=== PATIENT | female | born 1985 | race American Indian/Alaskan Native ===

== ENCOUNTER 2018-11-10 19:49 | Inpatient (IN) | payer SELFPAY ==
[2018-11-10] MEDS ORDERED: NACL 0.9% 1000 ML 1,000 ML IV ONE (20:13)
[2018-11-10 21:29] LABS: Basophils % (Auto) 0.6 % (0.0-1.8); Eosinophils # (Auto) 0.2 K/mm3 (0.0-0.4); Eosinophils % (Auto) 4.6 % (0.0-4.3); Hematocrit 36.4 % (30.3-42.9); Hemoglobin 12.1 gm/dl (10.1-14.3); Lymphocytes # (Auto) 1.8 K/mm3 (1.2-5.4); Lymphocytes % (Auto) 47.6 % (13.4-35.0); Mean Corpuscular HGB Conc 33 % (30-34); Mean Corpuscular Volume 84 fl (79-97); Monocytes # (Auto) 0.4 K/mm3 (0.0-0.8); Monocytes % (Auto) 11.9 % (0.0-7.3); Platelet Count 247 K/mm3 (140-440); Red Blood Count 4.32 M/mm3 (3.65-5.03); Red Cell Distribution Width 14.2 % (13.2-15.2)
[2018-11-10 21:38] LABS: INR 0.85 (0.87-1.13)
[2018-11-10 21:39] LABS: Partial Thromboplastin Time 27.9 Sec. (24.2-36.6)
[2018-11-10] MEDS ORDERED: PROTONIX IV ONE (21:41)
[2018-11-10] MEDS ORDERED: REGLAN IV ONE (21:41)
--- NOTE | 2018-11-10 21:45 | Emergency Department Report ---
HPI - General Chief Complaint: GI Bleed Time Seen by Provider: 11/10/18 21:36 - HPI HPI: 32-year-old -British female presents to the emergency department with complaint of a 2-3 day history of some right-sided abdominal pain and cramping, nausea with a few episodes of vomiting. Patient also says that she had one or 2 episodes of bright red blood per rectum while having a bowel movement. She has a past medical history of schizophrenia, fibromyalgia, previous intestinal disease causing bowel resections, hernia repairs and an ileostomy that has been reversed. She has not taken anything for her symptoms prior to presentation. The patient has been seen here in the past, last time in 2016. She says that she just moved back here from [place] and therefore does not have a local primary care physician. ED Past Medical Hx - Past Medical History Hx Congestive Heart Failure: No Hx Diabetes: No Hx Psychiatric Treatment: Yes (SCHIZOPHRENIA) Hx Asthma: No Hx COPD: No Additional medical history: Fibromyalgia. "crohns disease" - Surgical History Hx Appendectomy: Yes Additional Surgical History: X 5. BOWEL RESECTIONS w/ HERNIA REPAIRS - Social History Smoking Status: Never Smoker Substance Use Type: None - Medications Home Medications: Home Medications Medication Instructions Recorded Confirmed Last Taken Type Quetiapine Fumarate [SEROquel] 200 mg PO BID 08/03/14 07/31/15 1 Day Ago History ~02/19/15 FLUoxetine [PROzac] 20 mg PO QDAY 12/06/14 07/31/15 1 Day Ago History ~02/19/15 Dicyclomine [Bentyl] 40 mg PO QID PRN 06/19/15 07/31/15 Unknown History Famotidine [Pepcid] 20 mg PO DAILY #30 tablet 07/31/15 Unknown Rx Ferrous Sulfate 325 mg PO DAILY 07/31/15 07/31/15 Unknown History Ondansetron (Nf) [Zofran TAB] 8 mg PO Q8HR PRN #20 tablet 07/31/15 Unknown Rx traMADol [Ultram 50 MG tab] 50 - 100 mg PO Q8HR PRN #20 tablet 07/31/15 Unknown Rx Docusate Sodium [Colace] 100 mg PO BID PRN #20 capsule 11/11/18 Unknown Rx ED Review of Systems ROS: Stated complaint: ABDOMINAL PAIN, RECTAL BLEEDING Other details as noted in HPI Comment: All other systems reviewed and negative Constitutional: denies: chills, fever Eyes: denies: eye pain, vision change ENT: denies: ear pain, throat pain Respiratory: denies: cough, shortness of breath Cardiovascular: denies: chest pain, palpitations Gastrointestinal: abdominal pain, nausea, vomiting, other (rectal bleeding) Genitourinary: denies: dysuria, discharge Musculoskeletal: denies: back pain, arthralgia Skin: denies: rash, lesions Neurological: denies: headache, weakness Physical Exam - Physical Exam Vital Signs: Vital Signs 11/10/18 20:09 Temperature 97.5 F L Pulse Rate 64 Respiratory 16 Rate Blood Pressure 106/67 O2 Sat by Pulse 100 Oximetry Physical Exam: GENERAL: The patient is well-developed well-nourished. HEENT: Normocephalic. Atraumatic. Patient has moist mucous membranes. EYES: Extraocular motions are intact. Pupils are equal and reactive to light bilaterally. NECK: Supple. Trachea is midline. CHEST/LUNGS: Clear to auscultation. There is no respiratory distress noted. HEART/CARDIOVASCULAR: Regular. There is no tachycardia. There is no obvious murmur. ABDOMEN: Abdomen is soft. There is tenderness to palpation of the generalized abdomen. No guarding. Patient has normal bowel sounds. There is no abdominal distention. SKIN: Skin is warm and dry. NEURO: The patient is awake, alert, and oriented. The patient is cooperative. The patient has no focal neurologic deficits. The patient has normal speech. MUSCULOSKELETAL: There is no tenderness or deformity. There is no limitation range of motion. There is no evidence of acute injury. RECTAL: There is a nonthrombosed external hemorrhoid seen at the 5 o'clock position. No gross blood. Negative stool on guaiac testing. ED Course Vital Signs 11/10/18 20:09 Temperature 97.5 F L Pulse Rate 64 Respiratory 16 Rate Blood Pressure 106/67 O2 Sat by Pulse 100 Oximetry ED Medical Decision Making - Lab Data Result diagrams: 11/10/18 21:04 11/10/18 21:04 - EKG Data -: EKG Interpreted by Me EKG shows normal: sinus rhythm, axis (left axis deviation), intervals, QRS complexes (LVH), ST-T waves (repolarization, nonspecific ST-T waves) Rate: normal - EKG Data When compared to previous EKG there are: previous EKG unavailable Interpretation: other (sinus rhythm, left axis deviation, LVH, early repolarization) - Radiology Data Radiology results: report reviewed, image reviewed interpreted by me: Abdominal x-ray shows nonspecific bowel gas with increased stool volume. EXAM: CT ABDOMEN PELVIS W CON HISTORY: Abd pain TECHNIQUE: Dynamic helical CT scan through the abdomen and pelvis during and again after intravenous injection of iodinated contrast. Images are reconstructed in the sagittal and coronal planes. Oral contrast was not given. PRIORS: None. FINDINGS: The lung bases are clear. The liver, gallbladder, pancreas, spleen and adrenal glands appear normal. The kidneys appear normal. The pelvic organs appear grossly normal. There is an IUD that appears adequately positioned in the uterus. The stomach appears grossly within normal limits. There is a relatively large amount of gas and stool in the right colon and in the rectum. There are multiple mildly gas distended loops of small bowel throughout the abdomen. The appendix is not discretely visualized but there are no inflammatory changes in the right lower quadrant around the area of the cecum. The abdominal aorta has a normal diameter. The bones and subcutaneous soft tissues are unremarkable for age. IMPRESSION: Findings are most consistent with a diffuse ileus and constipation Transcribed By: MLG Dictated By: MARJAN LAM MD Electronically Authenticated By: MARJAN LAM MD Signed Date/Time: 11/11/18 0132 - Medical Decision Making Patient presents with a complaint of decreased bowel movements, abdominal pain, nausea or vomiting. She has a history of intestinal surgery, resection, previous bowel obstructions. Labs are mostly unremarkable. CT scan of the abdomen and pelvis with IV contrast shows diffuse ileus and constipation. Patient has received some pain medication, nausea medication, IV fluid resuscitation and still complains of having abdominal discomfort. Despite the fact that it is an ileus, the patient has a history of previous bowel obstruction. She does not have any current hypertension but she is borderline with a current blood pressure of 92/50. For all these reasons the patient will be admitted to the hospital for further evaluation, resuscitation and treatment and has been accepted for admission by the hospitalist, Dr. Sánchez. - Differential Diagnosis bowel obstruction, ileus, colitis, constipation Critical Care Time: No Critical care attestation.: If time is entered above; I have spent that time in minutes in the direct care of this critically ill patient, excluding procedure time. ED Disposition Clinical Impression: Ileus, Increased stool volume, Intractable abdominal pain, History of small bowel obstruction Disposition: 09 OP ADMIT IP TO THIS HOSP Is pt being admited?: No Condition: Fair Instructions: Constipation (ED), High Fiber Diet (ED), Abdominal Pain (ED), Ileus (ED) Additional Instructions: Please follow up with a primary care physician as soon as possible. I am giving you a referral for a local gastroenterology to follow up regarding your episodes of rectal bleeding, abdominal pain and issues with constipation. Increase your rehydration. Return to the emergency Department with any worsening of your symptoms with any acute distress. Prescriptions: Docusate Sodium [Colace] 100 mg PO BID PRN #20 capsule PRN Reason: Constipation Referrals: [facility] [Provider Group] - 2-3 Days REHANA SOMMER MD [Staff Physician] - 2-3 Days [facility] [Outside] - 2-3 Days Time of Disposition: 02:24
[2018-11-10 22:01] LABS: Bilirubin,Urine NEG (Negative); Blood,Urine NEG (Negative); Color,Urine Yellow (Yellow); Mucus,Urine 1+ /HPF
[2018-11-10 22:18] LABS: Albumin 4.1 g/dL (3.9-5); BUN/Creatinine Ratio 27; Blood Urea Nitrogen 16 mg/dL (7-17); Calcium 8.9 mg/dL (8.4-10.2); Hemolysis Index 100
[2018-11-10 22:22] LABS: Alanine Aminotransferase 24 units/L (7-56)
--- NOTE | 2018-11-10 22:31 | XRay Report ---
FINAL REPORT EXAM: XR ABDOMEN 2V HISTORY: abd pain TECHNIQUE: Supine abdomen PRIORS: None. FINDINGS: There is moderate gaseous distention with increased amount of stool within the colon. Air is seen in nondistended small bowel loops. Noted is IUD seen centrally within the pelvis. IMPRESSION: Nonspecific bowel gas pattern. Increased amount of stool and gas within the colon.
[2018-11-10] MEDS ORDERED: BENTYL PO ONE (23:36)
--- NOTE | 2018-11-11 01:32 | Cat Scan Report ---
FINAL REPORT EXAM: CT ABDOMEN PELVIS W CON HISTORY: Abd pain TECHNIQUE: Dynamic helical CT scan through the abdomen and pelvis during and again after intravenous injection of iodinated contrast. Images are reconstructed in the sagittal and coronal planes. Oral c ontrast was not given. PRIORS: None. FINDINGS: The lung bases are clear. The liver, gallbladder, pancreas, spleen and adrenal glands appear normal. The kidneys appear normal. The pelvic organs appear grossly normal. There is an IUD that appears adequately positioned in the ut erus. The stomach appears grossly within normal limits. There is a relatively large amount of gas and stool in the right colon and in the rectum. There are m ultiple mildly gas distended loops of small bowel throughout the abdomen. The appendix is not discre tely visualized but there are no inflammatory changes in the right lower quadrant around the area of the cecum. The abdominal aorta has a normal diameter. The bones and subcutaneous soft tissues are unremarkable for age. IMPRESSION: Findings are most consistent with a diffuse ileus and constipation
[2018-11-11] MEDS ORDERED: NACL 0.9% 1000 ML 1,000 ML IV ONE (01:40)
[2018-11-11] MEDS ORDERED: CITRATE OF MAGNESIA PO ONE (02:25)
[2018-11-11] MEDS ORDERED: ZOFRAN IV PRN (03:20)
[2018-11-11] MEDS ORDERED: DULCOLAX PO PRN (03:24)
--- NOTE | 2018-11-11 05:00 | History and Physical Report ---
CHIEF COMPLAINT: Abdominal pain. Other complaint include rectal bleed. HISTORY OF PRESENT ILLNESS: The patient is a 32-year-old female, who started having right-sided abdominal pain associated with nausea and vomiting and the patient said that she had about 1-2 episodes of bright red blood per rectum while having bowel movement; however, the patient said the last bowel movement before presentation was 3 days prior to coming to the Emergency Room. The patient denies history of hematemesis and denies history of shortness of breath or chest pain. There is also no history of fever and the patient presented for evaluation. The patient states she moved to [place] from [place] and has no local primary care physician. PAST MEDICAL HISTORY: Pertinent for schizophrenia. Also, the patient has past medical history of fibromyalgia, Crohn's disease. PAST SURGICAL HISTORY: , bowel resection with hernia repair. Also, the patient has past surgical history of ileostomy that was reversed. FAMILY HISTORY: Noncontributory. SOCIAL HISTORY: The patient does not smoke, does not drink alcohol and does not use illicit drugs. MEDICATIONS: The patient is on Seroquel 200 mg by mouth twice daily, Prozac 20 mg by mouth daily, Bentyl 40 mg by mouth q.i.d., famotidine 20 mg by mouth daily, ferrous sulfate 325 mg by mouth daily, Zofran 8 mg by mouth every 8 hours as needed for nausea and vomiting, Ultram 50 mg by mouth every 8 hours, Colace 100 mg by mouth twice daily. ALLERGIES: THE PATIENT IS ALLERGIC TO KETOROLAC TROMETHAMINE. Also, the PATIENT IS ALLERGIC TO ACETAMINOPHEN. REVIEW OF SYSTEMS: CONSTITUTIONAL: There is no fever, no chills, no diaphoresis. HEENT: There is no headache or sore throat. CARDIOVASCULAR SYSTEM: There is no chest pain or orthopnea. RESPIRATORY SYSTEM: There is no shortness of breath or cough. GASTROINTESTINAL SYSTEM: Abdominal pain is present. Nausea and vomiting present. Rectal bleeding present, constipation present. No diarrhea. NEUROLOGICAL: There is no numbness, no dizziness, no altered mental status. MUSCULOSKELETAL SYSTEM: There is no joint pain or swelling. DERMATOLOGICAL SYSTEM: There is no skin rash or itching. GENITOURINARY SYSTEM: There is no dysuria, hematuria or flank pain. Rest of system review is normal. PHYSICAL EXAMINATION: GENERAL: At the time of exam, the patient was found to be alert, oriented x 3, and not in acute distress. VITAL SIGNS: At the initial time of presentation showed temperature of 97.5 degrees Fahrenheit, pulse of 64, respirations 16, blood pressure 106/67, O2 sat of 100% on room air. HEENT: Showed pupils to be equal, round, reactive to light and accommodating. Extraocular muscles are intact. NECK: Supple with no JVD or carotid bruit. CARDIOVASCULAR: Showed normal first and second heart sounds with no gallops or murmurs. RESPIRATORY SYSTEM: Show good air entry on both sides of the lungs with no abnormal breath sounds. GASTROINTESTINAL SYSTEM: Show abdomen to be full, soft with generalized tenderness, but no guarding, no rigidity, no rebound tenderness and no organomegaly was elicited. Bowel sounds are hypoactive. NEUROLOGIC: Showed no focal neurological deficit. MUSCULOSKELETAL SYSTEM: Show no joint swelling or tenderness. DERMATOLOGICAL SYSTEM: Show no skin rash. GENITOURINARY SYSTEM: Showing no costovertebral angle tenderness. PERTINENT LABORATORY AND IMAGING STUDIES: The patient had a CT of the abdomen and pelvis done that shows diffuse ileus and constipation. Also, the patient also had abdominal x-ray done that shows nonspecific bowel gas pattern, increased amount of stool and gas within the colon. The patient's lab results shows a CBC with a low white count of 3.8, normal hemoglobin and normal hematocrit with CBC differential showing elevated lymphocyte count of 47.6%, elevated monocyte count of 11.9% and high eosinophil count of 4.6%. The patient's coagulation studies were unremarkable. Chemistry was unremarkable. The patient's urinalysis show high specific gravity of 1.031 with negative urine leukocyte esterase, negative urine nitrite, normal urine WBC and no bacteria. DIAGNOSES: 1. Ileus. 2. Rectal bleed. 3. Constipation. PLAN OF ACTION: 1. The patient will be admitted to medical surgical [facility] on remote telemetry. 2. The patient will have CBC checked in the morning. 3. The patient will be on IV Protonix 40 mg q. 12 hours. 4. The patient will be on IV normal saline running at 125 mL an hour. 5. The patient will have one dose of Bentyl 20 mg IM in the morning. 6. The patient will be on IV morphine 2 mg every 4 hours as needed for pain and IV Zofran 4 mg every 8 hours for nausea and vomiting. 7. The patient will have GI consult with [facility] with Dr. Junaid Capone listed. 8. The patient will remain n.p.o. until seen by the deli clerk. 9. The patient will be on Dulcolax 10 mg by mouth daily as needed for constipation. JOB# [id number] OCN/NTS
[2018-11-11] MEDS: NACL 0.9% 1000 ML 1,000 ML IV SCH ×2 (05:27→12:04)
[2018-11-11] MEDS ORDERED: BENTYL IM ONE (06:23)
[2018-11-11] MEDS: MORPHINE IV PRN ×3 (06:28→13:48)
[2018-11-11 07:35] LABS: Hemoglobin 11.8 gm/dl (10.1-14.3); Mean Corpuscular HGB Conc 33 % (30-34); Mean Corpuscular Volume 86 fl (79-97); Platelet Count 233 K/mm3 (140-440); Red Cell Distribution Width 14.5 % (13.2-15.2)
[2018-11-11 08:58] LABS: Anisocytosis 1+; Hypochromasia 1+; Poikilocytosis 1+; Total Cells Counted 100
[2018-11-11 08:59] LABS: Ovalocytes Few; Platelet Estimate Consistent w Auto
[2018-11-11] MEDS ORDERED: BENADRYL IV ONE (09:11)
[2018-11-11] MEDS ORDERED: PROTONIX IV SCH (10:00)
--- NOTE | 2018-11-11 13:16 | Gastroenterology Consultation ---
History of Present Illness - Reason for Consult Consult date: 11/11/18 abdominal pain, abnormal ct scan Requesting physician: ANIYAH ROCA - History of Present Illness Pt is a 32 yo female who presents with abdominal pain and nausea/vomiting. Pt with h/o multiple abdominal surgeries outside of [place] (reports having 11 surgeries for bowel obstruction with right sided colon resection and part of her small bowel removed - records not available at time of exam/history). she recently moved to [place]. she has recurrent episodes of abdominal pain and nausea/vomiting for which she presented to ED. She has chronic constipation with bm's occuring every 2-3 days. She reports having scant hematochezia several days ago with hard stools. CT scan showed signs of constipation and diffuse ileus. she reports having work-up in the past by GI (colonoscopy/egd) and denies diagnosis of IBD. Past History Past Medical History: other Past Surgical History: hernia repair, bowel surgery Social history: no significant social history Family history: no significant family history Medications and Allergies Allergies Allergy/AdvReac Type Severity Reaction Status Date / Time ketorolac tromethamine Allergy Swelling Verified 07/30/15 17:52 [From Toradol] acetaminophen [From Percocet] AdvReac Unknown Verified 07/30/15 17:52 cephalexin monohydrate AdvReac Itching Verified 07/30/15 17:52 [From Keflex] meperidine HCl [From Demerol] AdvReac Unknown Verified 07/30/15 17:52 morphine AdvReac Unknown Verified 07/30/15 17:52 NSAIDS (Non-Steroidal AdvReac Unknown Verified 07/30/15 17:52 Anti-Inflamma oxycodone HCl [From Percocet] AdvReac Itching Verified 07/30/15 17:52 vancomycin AdvReac Unknown Verified 07/30/15 17:52 Home Medications Medication Instructions Recorded Confirmed Last Taken Type Quetiapine Fumarate [SEROquel] 200 mg PO BID 08/03/14 11/11/18 1 Day Ago History ~02/19/15 FLUoxetine [PROzac] 20 mg PO QDAY 12/06/14 11/11/18 1 Day Ago History ~02/19/15 Dicyclomine [Bentyl] 40 mg PO QID PRN 06/19/15 11/11/18 Unknown History Famotidine [Pepcid] 20 mg PO DAILY #30 tablet 07/31/15 11/11/18 Unknown Rx Ferrous Sulfate 325 mg PO DAILY 07/31/15 11/11/18 Unknown History Ondansetron (Nf) [Zofran TAB] 8 mg PO Q8HR PRN #20 tablet 07/31/15 11/11/18 Unknown Rx traMADol [Ultram 50 MG tab] 50 - 100 mg PO Q8HR PRN #20 tablet 07/31/15 11/11/18 Unknown Rx Docusate Sodium [Colace CAP] 100 mg PO BID 11/11/18 11/11/18 Unknown History Active Meds: Active Medications Bisacodyl (Dulcolax) 10 mg PO QDAY PRN PRN Reason: Constipation Sodium Chloride (Nacl 0.9% 1000 Ml) 1,000 mls @ 125 mls/hr IV DIRECT ROBERT Last Admin: 11/11/18 12:04 Dose: 125 mls/hr Documented by: Morphine Sulfate (Morphine) 2 mg IV Q4H PRN PRN Reason: Pain, Moderate (4-6) Last Admin: 11/11/18 09:46 Dose: 2 mg Documented by: Ondansetron HCl (Zofran) 4 mg IV Q8H PRN PRN Reason: Nausea And Vomiting Last Admin: 11/11/18 08:44 Dose: 4 mg Documented by: Pantoprazole Sodium (Protonix) 40 mg IV BID [facility] Last Admin: 11/11/18 09:46 Dose: 40 mg Documented by: Reivewed/updated patient's home and current medications Review of Systems - Review of Systems All systems: negative (per HPI) Exam - Constitutional Vital Signs: Temp Pulse Resp BP Pulse Ox 97.8 F 68 20 108/69 100 11/11/18 06:16 11/11/18 06:16 11/11/18 10:16 11/11/18 06:16 11/11/18 06:16 General appearance: no acute distress - Neck Neck: supple, other (+ surgical scar) - Respiratory Respiratory effort: normal Respiratory: bilateral: CTA - Cardiovascular Rhythm: regular Heart Sounds: Present: S1 & S2 Extremities: No edema, Full ROM - Gastrointestinal General gastrointestinal: Present: soft, tender (right sided ttp), non- distended, normal bowel sounds - Integumentary Integumentary: Present: clear, warm - Neurologic Neurological: alert and oriented x3 - Psychiatric Psychiatric: appropriate mood/affect, memory intact - Labs CBC & Chem 7: 11/11/18 07:00 11/10/18 21:04 Lab Results: Laboratory Results - last 24 hr 11/10/18 11/10/18 11/10/18 21:04 21:04 21:04 WBC 3.8 L RBC 4.32 Hgb 12.1 Hct 36.4 MCV 84 MCH 28 MCHC 33 RDW 14.2 Plt Count 247 Lymph % (Auto) 47.6 H [place] % (Auto) 11.9 H Eos % (Auto) 4.6 H Baso % (Auto) 0.6 Lymph # 1.8 [place] # 0.4 Eos # 0.2 Baso # 0.0 Add Manual Diff Total Counted Seg Neutrophils % 35.3 L Seg Neuts % (Manual) Band Neutrophils % Lymphocytes % (Manual) Reactive Lymphs % (Man) Monocytes % (Manual) Eosinophils % (Manual) Basophils % (Manual) Metamyelocytes % Myelocytes % Promyelocytes % Blast Cells % Nucleated RBC % Seg Neutrophils # 1.3 L Seg Neutrophils # Man Band Neutrophils # Lymphocytes # (Manual) Abs React Lymphs (Man) Monocytes # (Manual) Eosinophils # (Manual) Basophils # (Manual) Metamyelocytes # Myelocytes # Promyelocytes # Blast Cells # WBC Morphology Hypersegmented Neuts Hyposegmented Neuts Hypogranular Neuts Smudge Cells Toxic Granulation Toxic Vacuolation Dohle Bodies Pelger-Huet Anomaly [place] Rods Platelet Estimate Clumped Platelets Plt Clumps, EDTA Large Platelets Giant Platelets Platelet Satelliting Plt Morphology Comment RBC Morphology Dimorphic RBCs Polychromasia Hypochromasia Poikilocytosis Anisocytosis Microcytosis Macrocytosis Spherocytes Pappenheimer Bodies Sickle Cells Target Cells Tear Drop Cells Ovalocytes Helmet Cells [place] Bodies [place] Rings Braman Cells Bite Cells Crenated Cell Elliptocytes Acanthocytes (Spur) Rouleaux Hemoglobin C Crystals Schistocytes Malaria parasites Morales Bodies Hem Pathologist Commnt PT INR APTT Sodium 138 Potassium 4.6 Chloride 100.7 Carbon Dioxide 23 Anion Gap 19 BUN 16 Creatinine 0.6 L Estimated GFR > 60 BUN/Creatinine Ratio 27 Glucose 91 Calcium 8.9 Total Bilirubin 0.30 AST 36 ALT 24 Alkaline Phosphatase 72 Total Protein 7.4 Albumin 4.1 Albumin/Globulin Ratio 1.2 Lipase 31 HCG, Qual Negative Urine Color Urine Turbidity Urine pH Ur Specific [place] Urine Protein Urine Glucose (UA) Urine Ketones Urine Blood Urine Nitrite Urine Bilirubin Urine Urobilinogen Ur Leukocyte Esterase Urine WBC (Auto) Urine RBC (Auto) U Epithel Cells (Auto) Urine Mucus Blood Type Antibody Screen 11/10/18 11/10/18 11/10/18 21:04 21:07 21:15 WBC RBC Hgb Hct MCV MCH MCHC RDW Plt Count Lymph % (Auto) [place] % (Auto) Eos % (Auto) Baso % (Auto) Lymph # [place] # Eos # Baso # Add Manual Diff Total Counted Seg Neutrophils % Seg Neuts % (Manual) Band Neutrophils % Lymphocytes % (Manual) Reactive Lymphs % (Man) Monocytes % (Manual) Eosinophils % (Manual) Basophils % (Manual) Metamyelocytes % Myelocytes % Promyelocytes % Blast Cells % Nucleated RBC % Seg Neutrophils # Seg Neutrophils # Man Band Neutrophils # Lymphocytes # (Manual) Abs React Lymphs (Man) Monocytes # (Manual) Eosinophils # (Manual) Basophils # (Manual) Metamyelocytes # Myelocytes # Promyelocytes # Blast Cells # WBC Morphology Hypersegmented Neuts Hyposegmented Neuts Hypogranular Neuts Smudge Cells Toxic Granulation Toxic Vacuolation Dohle Bodies Pelger-Huet Anomaly [place] Rods Platelet Estimate Clumped Platelets Plt Clumps, EDTA Large Platelets Giant Platelets Platelet Satelliting Plt Morphology Comment RBC Morphology Dimorphic RBCs Polychromasia Hypochromasia Poikilocytosis Anisocytosis Microcytosis Macrocytosis Spherocytes Pappenheimer Bodies Sickle Cells Target Cells Tear Drop Cells Ovalocytes Helmet Cells [place] Bodies [place] Rings Braman Cells Bite Cells Crenated Cell Elliptocytes Acanthocytes (Spur) Rouleaux Hemoglobin C Crystals Schistocytes Malaria parasites Morales Bodies Hem Pathologist Commnt PT 12.1 L INR 0.85 L APTT 27.9 Sodium Potassium Chloride Carbon Dioxide Anion Gap BUN Creatinine Estimated GFR BUN/Creatinine Ratio Glucose Calcium Total Bilirubin AST ALT Alkaline Phosphatase Total Protein Albumin Albumin/Globulin Ratio Lipase HCG, Qual Urine Color Yellow Urine Turbidity Clear Urine pH 6.0 Ur Specific [place] 1.031 H Urine Protein 30 mg/dl Urine Glucose (UA) Neg Urine Ketones Neg Urine Blood Neg Urine Nitrite Neg Urine Bilirubin Neg Urine Urobilinogen 2.0 Ur Leukocyte Esterase Neg Urine WBC (Auto) 1.0 Urine RBC (Auto) 9.0 U Epithel Cells (Auto) < 1.0 Urine Mucus 1+ Blood Type O POSITIVE Antibody Screen Negative 11/11/18 07:00 WBC 2.2 L RBC 4.20 Hgb 11.8 Hct 36.0 MCV 86 MCH 28 MCHC 33 RDW 14.5 Plt Count 233 Lymph % (Auto) [place] % (Auto) Eos % (Auto) Baso % (Auto) Lymph # [place] # Eos # Baso # Add Manual Diff Complete Total Counted 100 Seg Neutrophils % [place] Seg Neuts % (Manual) 29.0 L Band Neutrophils % 0 Lymphocytes % (Manual) 52.0 H Reactive Lymphs % (Man) 0 Monocytes % (Manual) 12.0 H Eosinophils % (Manual) 5.0 H Basophils % (Manual) 2.0 H Metamyelocytes % 0 Myelocytes % 0 Promyelocytes % 0 Blast Cells % 0 Nucleated RBC % Not Reportable Seg Neutrophils # Seg Neutrophils # Man 0.6 L Band Neutrophils # 0.0 Lymphocytes # (Manual) 1.1 L Abs React Lymphs (Man) 0.0 Monocytes # (Manual) 0.3 Eosinophils # (Manual) 0.1 Basophils # (Manual) 0.0 Metamyelocytes # 0.0 Myelocytes # 0.0 Promyelocytes # 0.0 Blast Cells # 0.0 WBC Morphology Not Reportable Hypersegmented Neuts Not Reportable Hyposegmented Neuts Not Reportable Hypogranular Neuts Not Reportable Smudge Cells Not Reportable Toxic Granulation Not Reportable Toxic Vacuolation Not Reportable Dohle Bodies Not Reportable Pelger-Huet Anomaly Not Reportable [place] Rods Not Reportable Platelet Estimate Consistent w auto Clumped Platelets Not Reportable Plt Clumps, EDTA Not Reportable Large Platelets Not Reportable Giant Platelets Not Reportable Platelet Satelliting Not Reportable Plt Morphology Comment Not Reportable RBC Morphology Not Reportable Dimorphic RBCs Not Reportable Polychromasia Not Reportable Hypochromasia 1+ Poikilocytosis 1+ Anisocytosis 1+ Microcytosis 1+ Macrocytosis Not Reportable Spherocytes Not Reportable Pappenheimer Bodies Not Reportable Sickle Cells Not Reportable Target Cells Not Reportable Tear Drop Cells Not Reportable Ovalocytes Few Helmet Cells Not Reportable [place] Bodies Not Reportable [place] Rings Not Reportable [place] Cells Not Reportable Bite Cells Not Reportable Crenated Cell Not Reportable Elliptocytes Few Acanthocytes (Spur) Few Rouleaux Not Reportable Hemoglobin C Crystals Not Reportable Schistocytes Not Reportable Malaria parasites Not Reportable Morales Bodies Not Reportable Hem Pathologist Commnt No PT INR APTT Sodium Potassium Chloride Carbon Dioxide Anion Gap BUN Creatinine Estimated GFR BUN/Creatinine Ratio Glucose Calcium Total Bilirubin AST ALT Alkaline Phosphatase Total Protein Albumin Albumin/Globulin Ratio Lipase HCG, Qual Urine Color Urine Turbidity Urine pH Ur Specific [place] Urine Protein Urine Glucose (UA) Urine Ketones Urine Blood Urine Nitrite Urine Bilirubin Urine Urobilinogen Ur Leukocyte Esterase Urine WBC (Auto) Urine RBC (Auto) U Epithel Cells (Auto) Urine Mucus Blood Type Antibody Screen - Imaging CT Scan: report reviewed Assessment and Plan 1. Abdominal pain - multiple prior surgeries and reports chronic abdominal pain; ct reviewed without signs of obstruction (suggestive of ileus/constipation) 2. Ileus - ambulate, avoid pain medications. non distended abd so can hold off o n ng tube. 3. Constipation - bowel regimen daily 4. Nausea/vomiting - improved and requesting to eat. diet to be started by primary and will monitor
[2018-11-11 13:51] VITALS: BP 98/61
[2018-11-11] MEDS ORDERED: NORCO 5/325 PO PRN (14:42)
[2018-11-11] MEDS ORDERED: REGLAN IV PRN (14:44)
[2018-11-11] MEDS ORDERED: ATIVAN PO PRN (14:47)
[2018-11-11] MEDS ORDERED: FLEET PR ONE (15:16)
--- NOTE | 2018-11-11 15:18 | Progress Note ---
Assessment and Plan / Abdominal pain - multiple prior surgeries and reports chronic abdominal pain; ct reviewed without signs of obstruction (suggestive of ileus/constipation) - GI consulted, medical Mx with supportive care / Ileus - GI recommended for ambulation, avoiding pain meds, IV fluid as N/V resolved, plan to start clear liquid today / Constipation - Placed on bowel regimen daily / Nausea/vomiting - improved and will place on clear liquid and advance as tolerated Brief History: 32 y/o AAF presented with abdominal pain N/V, CT scan obtained and reviewed - without signs of obstruction (suggestive of ileus/constipation). GI consulted and recommended medical management. Subjective Date of service: 11/11/18 Interval history: Patient seen and examined states abdominal pain improved and N/V better this am wants to eat, no BM today yet Objective - Exam Narrative Exam: General appearance: Present: no acute distress, well-nourished - EENT Eyes: Present: PERRL ENT: hearing intact, clear oral mucosa - Neck Neck: Present: supple, normal ROM - Respiratory Respiratory effort: normal Respiratory: bilateral: CTA - Cardiovascular Heart Sounds: Present: S1 & S2. Absent: rub, click - Extremities Extremities: pulses symmetrical, No edema Peripheral Pulses: within normal limits - Abdominal General gastrointestinal: Present: soft, non-tender, non-distended, other (diminished BS, multiple incisional jorge luis in abdomen) Female genitourinary: Present: normal - Integumentary Integumentary: Present: clear, warm, dry - Musculoskeletal Musculoskeletal: gait normal, strength equal bilaterally - Psychiatric Psychiatric: appropriate mood/affect, intact judgment & insight - Neurologic Neurologic: CNII-XII intact, moves all extremities - Constitutional Vitals: Vital Signs - 12hr 11/11/18 11/11/18 11/11/18 05:25 06:16 09:46 Temperature 97.8 F Pulse Rate 68 68 Respiratory 18 17 20 Rate Respiratory Rate [Bilateral Lower Abdomen] Blood Pressure 108/69 Blood Pressure 103/72 [Left] O2 Sat by Pulse 100 100 Oximetry 11/11/18 11/11/18 11/11/18 10:00 10:16 12:01 Temperature 98.7 F Pulse Rate Respiratory 20 18 Rate Respiratory 20 Rate [Bilateral Lower Abdomen] Blood Pressure Blood Pressure [Left] O2 Sat by Pulse Oximetry 11/11/18 11/11/18 13:48 13:50 Temperature 98.7 F Pulse Rate 61 Respiratory 20 Rate Respiratory Rate [Bilateral Lower Abdomen] Blood Pressure Blood Pressure 98/61 [Left] O2 Sat by Pulse Oximetry - Labs CBC & Chem 7: 11/11/18 07:00 11/10/18 21:04 Labs: Abnormal lab results 11/10/18 11/10/18 11/10/18 Range/Units 21:04 21:04 21:04 WBC 3.8 L (4.5-11.0) K/mm3 Lymph % (Auto) 47.6 H (13.4-35.0) % [place] % (Auto) 11.9 H (0.0-7.3) % Eos % (Auto) 4.6 H (0.0-4.3) % Seg Neutrophils % 35.3 L (40.0-70.0) % Seg Neuts % (Manual) (40.0-70.0) % Lymphocytes % (Manual) (13.4-35.0) % Monocytes % (Manual) (0.0-7.3) % Eosinophils % (Manual) (0.0-4.3) % Basophils % (Manual) (0.0-1.8) % Seg Neutrophils # 1.3 L (1.8-7.7) K/mm3 Seg Neutrophils # Man (1.8-7.7) K/mm3 Lymphocytes # (Manual) (1.2-5.4) K/mm3 PT 12.1 L (12.2-14.9) Sec. INR 0.85 L (0.87-1.13) Creatinine 0.6 L (0.7-1.2) mg/dL Ur Specific [place] (1.003-1.030) 11/10/18 11/11/18 Range/Units 21:07 07:00 WBC 2.2 L (4.5-11.0) K/mm3 Lymph % (Auto) (13.4-35.0) % [place] % (Auto) (0.0-7.3) % Eos % (Auto) (0.0-4.3) % Seg Neutrophils % (40.0-70.0) % Seg Neuts % (Manual) 29.0 L (40.0-70.0) % Lymphocytes % (Manual) 52.0 H (13.4-35.0) % Monocytes % (Manual) 12.0 H (0.0-7.3) % Eosinophils % (Manual) 5.0 H (0.0-4.3) % Basophils % (Manual) 2.0 H (0.0-1.8) % Seg Neutrophils # (1.8-7.7) K/mm3 Seg Neutrophils # Man 0.6 L (1.8-7.7) K/mm3 Lymphocytes # (Manual) 1.1 L (1.2-5.4) K/mm3 PT (12.2-14.9) Sec. INR (0.87-1.13) Creatinine (0.7-1.2) mg/dL Ur Specific [place] 1.031 H (1.003-1.030)
[2018-11-11] MEDS ORDERED: CARAFATE PO SCH (16:00)
[2018-11-11] MEDS ORDERED: DULCOLAX PR SCH (16:00)
[2018-11-11] MEDS ORDERED: D5NS 1,000 ML IV SCH (16:00)
[2018-11-11] MEDS ORDERED: BENTYL PO SCH (18:00)
[2018-11-11] MEDS ORDERED: COLACE PO SCH (22:00)
[2018-11-11] MEDS ORDERED: LOVENOX SUB-Q SCH (22:00)
[2018-11-12] MEDS ORDERED: PROTONIX IV SCH (10:00)
--- NOTE | 2018-11-12 12:15 | Discharge Summary ---
Providers - Providers Date of Admission: 11/11/18 02:32 Date of discharge: 11/11/18 Attending physician: ANIYAH ROCA 11/10/18 23:29 Consult to Case Management [CONS] Routine Services Needed at Discharge: Hand Scudder Notified:: Tracy Comment:: Discharge planning 11/11/18 06:00 Consult to Physician [CONS] Routine Comment: Consulting Provider: JORGE LUIS ORELLANA Physician Instructions: Reason For Exam: RECTAL BLEEDIND AND ILEUS [facility] Reason for admission: abdominal pain Condition: Fair Pertinent studies: CT abdomen/pelvis Abdomen/ pelvis xry Hospital course: 32 y/o AAF presented with abdominal pain N/V, CT scan obtained and reviewed - without signs of obstruction (suggestive of ileus/constipation). GI consulted and recommended medical management, BUT she left the hospital w/o signing the AMA paper. Discharge diagnosis: 1. Abdominal pain - multiple prior surgeries and reports chronic abdominal pain; ct reviewed without signs of obstruction (suggestive of ileus/constipation) 2. Ileus - Planned for medical Mx with ambulation, avoiding pain meds, IV fluid as N/V resolved 3. Constipation - Placed on bowel regimen daily 4. Nausea/vomiting - improved and was started on clear liquid Disposition: DC-07 LEFT AGAINST MED ADVICE Core Measure Documentation - Palliative Care Palliative Care/ Comfort Measures: Not Applicable - Core Measures Any of the following diagnoses?: none Exam - Constitutional Vitals: Temp Pulse Resp BP Pulse Ox 98.7 F 61 20 98/61 100 11/11/18 13:50 11/11/18 13:50 11/11/18 13:48 11/11/18 13:50 11/11/18 06:16 General appearance: Present: no acute distress, well-nourished - EENT Eyes: Present: PERRL ENT: hearing intact, clear oral mucosa - Neck Neck: Present: supple, normal ROM - Respiratory Respiratory effort: normal Respiratory: bilateral: CTA - Cardiovascular Heart Sounds: Present: S1 & S2. Absent: rub, click - Extremities Extremities: pulses symmetrical, No edema Peripheral Pulses: within normal limits - Abdominal General gastrointestinal: Present: soft, non-tender, non-distended, other (diminished BS, multiple incisional jorge luis in abdomen) Female genitourinary: Present: normal - Integumentary Integumentary: Present: clear, warm, dry - Musculoskeletal Musculoskeletal: gait normal, strength equal bilaterally - Psychiatric Psychiatric: appropriate mood/affect, intact judgment & insight - Neurologic Neurologic: CNII-XII intact, moves all extremities Plan Follow up with: [facility] [Provider Group] - 2-3 Days [facility] [Outside] - 2-3 Days REHANA SOMMER MD [Staff Physician] - 2-3 Days
== END 2018-11-11 15:30 | disposition left against medical advice (07) | DRG 378 ==
LOC: ED 19:49 → 3B-SURG 11-11 02:32
PROVIDERS: ADMIT Internal Medicine; ATTEND Internal Medicine
DX: K62.5 Hemorrhage of anus and rectum (principal); K56.7 Ileus, unspecified; K50.90 Crohn's disease, unspecified, without complications; K59.00 Constipation, unspecified; F20.9 Schizophrenia, unspecified; M79.7 Fibromyalgia; Z88.1 Allergy status to other antibiotic agents; Z88.5 Allergy status to narcotic agent; Z79.899 Other long term (current) drug therapy; Z93.2 Ileostomy status
CPT/HCPCS: 36415; 74019; 74177; 80053; 81001; 83690; 84703; 85007; 85025; 85610; 85730; 86850; 86900; 86901; 93005; 93010; G0378; C9113; J0500; J1200; J2270; J2405; J2765; J7030; Q9967

== ENCOUNTER 2021-08-07 00:01 | Emergency (ER) | payer SELFPAY ==
[2021-08-07 00:07] VITALS: BP 125/75
--- NOTE | 2021-08-07 03:04 | Emergency Department Report ---
ED Abdominal Pain HPI - General Chief Complaint: Abdominal Pain Stated Complaint: ABDOMINAL PAIN Time Seen by Provider: 08/07/21 02:14 Source: patient Mode of arrival: Ambulatory Limitations: No Limitations - History of Present Illness Initial Comments: Patient 35-year-old -[place] female who presents for abdominal pain epigastric 4/10 for the past 5 days. She states intermittent nausea vomiting and constipation. States history of colon resection due to diverticulitis. However there is been no fevers no chills and no diarrhea. Symptoms are exacerbated by p.o. intake. Symptoms are relieved by nothing tried. Patient denies dysuria frequency urgency or hematuria.. MD Complaint: abdominal pain - Related Data Home Medications Medication Instructions Recorded Confirmed Last Taken Quetiapine Fumarate [SEROquel] 200 mg PO BID 08/03/14 11/11/18 1 Day Ago ~02/19/15 FLUoxetine [PROzac] 20 mg PO QDAY 12/06/14 11/11/18 1 Day Ago ~02/19/15 Dicyclomine [Bentyl] 40 mg PO QID PRN 06/19/15 11/11/18 Unknown Ferrous Sulfate 325 mg PO DAILY 07/31/15 11/11/18 Unknown Docusate Sodium [Colace CAP] 100 mg PO BID 11/11/18 11/11/18 Unknown Previous Rx's Medication Instructions Recorded Last Taken Type Famotidine [Pepcid] 20 mg PO DAILY #30 tablet 07/31/15 Unknown Rx Ondansetron (Nf) [Zofran TAB] 8 mg PO Q8HR PRN #20 tablet 07/31/15 Unknown Rx traMADoL [Ultram 50 MG tab] 50 - 100 mg PO Q8HR PRN #20 tablet 07/31/15 Unknown Rx Allergies Allergy/AdvReac Type Severity Reaction Status Date / Time ketorolac tromethamine Allergy Swelling Verified 07/30/15 17:52 [From Toradol] acetaminophen [From Percocet] AdvReac Unknown Verified 07/30/15 17:52 cephalexin monohydrate AdvReac Itching Verified 07/30/15 17:52 [From Keflex] meperidine HCl [From Demerol] AdvReac Unknown Verified 07/30/15 17:52 morphine AdvReac Unknown Verified 07/30/15 17:52 NSAIDS (Non-Steroidal AdvReac Unknown Verified 07/30/15 17:52 Anti-Inflamma oxycodone HCl [From Percocet] AdvReac Itching Verified 07/30/15 17:52 vancomycin AdvReac Unknown Verified 07/30/15 17:52 ED Review of Systems ROS: Stated complaint: ABDOMINAL PAIN Other details as noted in HPI Constitutional: denies: chills, fever Eyes: denies: eye pain, eye discharge, vision change ENT: denies: ear pain, throat pain Respiratory: denies: cough, shortness of breath, wheezing Cardiovascular: denies: chest pain, palpitations Endocrine: no symptoms reported Gastrointestinal: abdominal pain, nausea, vomiting, constipation Genitourinary: denies: urgency, dysuria, discharge Musculoskeletal: denies: back pain, joint swelling, arthralgia Skin: denies: rash, lesions Neurological: denies: headache, weakness, paresthesias Psychiatric: denies: anxiety, depression Hematological/Lymphatic: denies: easy bleeding, easy bruising ED Past Medical Hx - Past Medical History Previous Medical History?: Yes Hx Congestive Heart Failure: No Hx Diabetes: No Hx Psychiatric Treatment: Yes (SCHIZOPHRENIA) Hx Asthma: No Hx COPD: No Additional medical history: Fibromyalgia. "crohns disease" - Surgical History Past Surgical History?: Yes Hx Appendectomy: Yes Additional Surgical History: X 5. BOWEL RESECTIONS w/ HERNIA REPAIRS - Social History Smoking Status: Never Smoker - Medications Home Medications: Home Medications Medication Instructions Recorded Confirmed Last Taken Type Quetiapine Fumarate [SEROquel] 200 mg PO BID 08/03/14 11/11/18 1 Day Ago History ~02/19/15 FLUoxetine [PROzac] 20 mg PO QDAY 12/06/14 11/11/18 1 Day Ago History ~02/19/15 Dicyclomine [Bentyl] 40 mg PO QID PRN 06/19/15 11/11/18 Unknown History Famotidine [Pepcid] 20 mg PO DAILY #30 tablet 07/31/15 11/11/18 Unknown Rx Ferrous Sulfate 325 mg PO DAILY 07/31/15 11/11/18 Unknown History Ondansetron (Nf) [Zofran TAB] 8 mg PO Q8HR PRN #20 tablet 07/31/15 11/11/18 Unknown Rx traMADoL [Ultram 50 MG tab] 50 - 100 mg PO Q8HR PRN #20 tablet 07/31/15 11/11/18 Unknown Rx Docusate Sodium [Colace CAP] 100 mg PO BID 11/11/18 11/11/18 Unknown History ED Physical Exam - General Limitations: No Limitations General appearance: alert, in no apparent distress - Head Head exam: Present: atraumatic, normocephalic - Eye Eye exam: Present: normal appearance, EOMI Pupils: Present: normal accommodation - ENT ENT exam: Present: mucous membranes moist. Absent: TM's normal bilaterally - Neck Neck exam: Present: normal inspection, full ROM. Absent: tenderness - Respiratory Respiratory exam: Present: normal lung sounds bilaterally. Absent: respiratory distress, wheezes, chest wall tenderness - Cardiovascular Cardiovascular Exam: Present: regular rate, normal rhythm, normal heart sounds. Absent: systolic murmur, diastolic murmur, rubs, gallop - GI/Abdominal GI/Abdominal exam: Present: soft, normal bowel sounds. Absent: distended, tenderness, guarding, rebound, rigid, bruit, hernia - Rectal Rectal exam: Present: deferred - Extremities Exam Extremities exam: Present: normal inspection, full ROM, normal capillary refill. Absent: tenderness - Back Exam Back exam: Present: normal inspection, full ROM. Absent: tenderness, CVA tenderness (R), CVA tenderness (L) - Neurological Exam Neurological exam: Present: alert, oriented X3, CN II-XII intact, normal gait - Psychiatric Psychiatric exam: Present: normal affect, normal mood - Skin Skin exam: Present: warm, dry, intact, normal color. Absent: rash ED Course Vital Signs 08/07/21 00:04 Temperature 98.0 F Pulse Rate 70 Respiratory 18 Rate Blood Pressure 125/75 O2 Sat by Pulse 98 Oximetry ED Medical Decision Making - Lab Data Result diagrams: 08/07/21 03:06 - Radiology Data Radiology results: report reviewed, image reviewed CT ABDOMEN AND PELVIS WITHOUT CONTRAST INDICATION / CLINICAL INFORMATION: Abdominal pain with cramping and N/V/D x 4 days. TECHNIQUE: Axial CT images were obtained through the abdomen and pelvis without IV contrast. All CT scans at this location are performed using CT dose reduction for ALARA by means of automated exposure control. COMPARISON: None available. FINDINGS: LOWER CHEST: No significant abnormality. LIVER: No significant abnormality. GALLBLADDER: No significant abnormality. BILE DUCTS: No significant abnormality. PANCREAS: No significant abnormality. SPLEEN: No significant abnormality. ADRENALS: No significant abnormality. RIGHT KIDNEY / URETER: No significant abnormality. LEFT KIDNEY / URETER: No significant abnormality. STOMACH / SMALL BOWEL: No significant abnormality. COLON: No significant abnormality. APPENDIX: No significant abnormality. PERITONEUM: No free fluid. No free air. No fluid collection. LYMPH NODES: No significant adenopathy. VASCULAR STRUCTURES: No significant abnormality. URINARY BLADDER: No significant abnormality. REPRODUCTIVE ORGANS: Previous hysterectomy. ADDITIONAL FINDINGS: None. SKELETAL SYSTEM: No significant abnormality. IMPRESSION: No acute abnormality. Signer Name: Timmy Scott MD Signed: 08/07/2021 3:24 AM Workstation Name: [id number] Transcribed By: NAYELI Dictated By: Timmy Scott MD Electronically Authenticated By: Timmy Scott MD Signed Date/Time: 08/07/21323 - Medical Decision Making CT ABDOMEN AND PELVIS WITHOUT CONTRAST INDICATION / CLINICAL INFORMATION: Abdominal pain with cramping and N/V/D x 4 days. TECHNIQUE: Axial CT images were obtained through the abdomen and pelvis without IV contrast. All CT scans at this location are performed using CT dose reduction for ALARA by janki ns of automated exposure control. COMPARISON: None available. FINDINGS: LOWER CHEST: No significant abnormality. LIVER: No significant abnormality. GALLBLADDER: No significant abnormality. BILE DUCTS: No significant abnormality. PANCREAS: No significant abnormality. SPLEEN: No significant abnormality. ADRENALS: No significant abnormality. RIGHT KIDNEY / URETER: No significant abnormality. LEFT KIDNEY / URETER: No significant abnormality. STOMACH / SMALL BOWEL: No significant abnormality. COLON: No significant abnormality. APPENDIX: No significant abnormality. PERITONEUM: No free fluid. No free air. No fluid collection. LYMPH NODES: No significant adenopathy. VASCULAR STRUCTURES: No significant abnormality. URINARY BLADDER: No significant abnormality. REPRODUCTIVE ORGANS: Previous hysterectomy. ADDITIONAL FINDINGS: None. SKELETAL SYSTEM: No significant abnormality. IMPRESSION: No acute abnormality. Signer Name: Timmy Scott MD Signed: 08/07/2021 3:24 AM Workstation Name: [id number] Transcribed By: ES Dictated By: Timmy Scott MD Electronically Authenticated By: Timmy Scott MD Signed Date/Time: 08/07/21323 Critical care attestation.: If time is entered above; I have spent that time in minutes in the direct care of this critically ill patient, excluding procedure time. ED Disposition Clinical Impression: UTI (urinary tract infection) Qualifiers: Urinary tract infection type: acute cystitis Hematuria presence: without hematuria Qualified Code(s): N30.00 - Acute cystitis without hematuria Disposition: HOME / SELF CARE / HOMELESS Is pt being admited?: No Does the pt Need Aspirin: No Condition: Stable Instructions: Abdominal Pain (ED), Urinary Tract Infection, Adult Additional Instructions: Take medication as prescribed, follow-up with [facility] in 2 to 3 days. Return to emergency department should symptoms worsen. Referrals: PRIMARY CARE, [Primary Care Provider] - 3-5 Days [facility] [Provider Group] - 3-5 Days Forms: Work/School Release Form(ED)
[2021-08-07 03:32] LABS: Bilirubin,Urine NEG (Negative); Blood,Urine MOD (Negative); Color,Urine Yellow (Yellow); Mucus,Urine FEW /HPF; Protein,Urine <15 mg/dL mg/dL (Negative); Urobilinogen,Urine < 2.0 mg/dL (<2.0)
[2021-08-07 03:38] LABS: HCG Qualitative,Urine Negative (Negative)
[2021-08-07 03:42] LABS: Alanine Aminotransferase 25 units/L (7-56); Blood Urea Nitrogen 17 mg/dL (7-17); Calcium 9.1 mg/dL (8.4-10.2); Hemolysis Index 55
[2021-08-07 03:43] LABS: BUN/Creatinine Ratio 34
--- NOTE | 2021-08-07 04:27 | XRay Report ---
ABDOMEN 1 VIEW(S) INDICATION / CLINICAL INFORMATION: abd pain. COMPARISON: 11/10/2018. FINDINGS: TUBES / LINES: None. BOWEL GAS PATTERN: Scattered gas in a nonobstructive fashion with mild colonic distention. ADDITIONAL FINDINGS: Hepatomegaly. IUD. Signer Name: Timmy Scott MD Signed: 08/07/2021 4:23 AM Workstation Name: [id number]
== END 2021-08-07 08:56 | disposition home or self-care (01) ==
LOC: ED 00:01
DX: N30.00 Acute cystitis without hematuria (principal); F20.9 Schizophrenia, unspecified
CPT/HCPCS: 36415; 74018; 80053; 81001; 81025; 83690; 99283

== ENCOUNTER 2021-09-23 03:25 | Emergency (ER) | payer MEDICAID ==
[2021-09-23 03:33] VITALS: BP 112/78
== END 2021-09-23 03:30 | disposition left against medical advice (07) ==
LOC: ED 03:25
DX: R10.9 Unspecified abdominal pain (principal); Z53.21 Procedure and treatment not carried out due to patient leaving prior to being seen by health care provider